=== PATIENT | female | born 2000 | race Caucasian/White ===

== ENCOUNTER → 2022-12-18 14:20 | Outpatient (CLI) | payer OTHER, SELFPAY ==
--- NOTE | ~2022-12-18 | US_ITS ---
EXAMINATION: US OB transvaginal DATE: 12/18/2022 14:46 INDICATION: Gestational dating. Irregular periods. TECHNIQUE: Real-time transvaginal obstetric ultrasound. FINDINGS: No prior studies for comparison. The uterus measures 7.3 x 3.9 x 4.3 cm. There is an intrauterine gestational sac, with pole waqas ntified. Mean sac diameter is 1.23 cm corresponding to 5 week 2 day gestation. [place]-rump length usama ures 0.19 cm. No heart motions are detected, most likely due to early gestational age. Ovaries are not visualized. IMPRESSION: 1. Intrauterine gestational sac containing a yolk sac and pole corresponding to 5 week 2 day ge station. No heart motions are detected, likely due to early gestational age. Recommend follow-u p with serial quantitative beta-hCG levels and ultrasound as clinically indicated. Reviewed, dictated and finalized at location A. IMPRESSION: 1. Intrauterine gestational sac containing a yolk sac and pole correspond ing to 5 week 2 day gestation. No heart motions are detected, likely due to early gestational age. Recommend follow-up with serial quantitative beta-hCG levels and ultrasound as clinically indicated.
== END ==
PROVIDERS: PCP Obstetrics & Gynecology Gynecology; Visit Provider Obstetrics & Gynecology Gynecology
DX: Z36.87 Encounter for antenatal screening for uncertain dates (principal); Z3A.01 Less than 8 weeks gestation of pregnancy
CPT/HCPCS: 76817

== ENCOUNTER → 2022-12-29 11:13 | Outpatient (CLI) | payer OTHER, SELFPAY ==
--- NOTE | ~2022-12-29 | US_ITS ---
Pelvic ultrasound. Clinical History: First trimester , inconclusive viability Technique: Realtime transabdominal and transvaginal scanning of the pelvis was performed. Color flow Doppler and Doppler spectral analysis were performed. Findings: The uterus is anteverted, and contains an intrauterine gestation. [place]-rump length of 1 cm corresponds to an estimated gestational age of 7 weeks 1 day. heart rate is 151 bpm. The right ovary measures 2.2 x 1.3 x 1.9 cm. No significant right ovarian or adnexal mass is seen. The left ovary measures 1.6 x 1.2 x 2.1 cm. No significant left ovarian or adnexal mass is seen. There is no evidence of free fluid in the cul de sac. Impression: Live intrauterine gestation with estimated gestational age is 7 weeks 1 day. heart rate is 151 bpm. Sonographic BRIAN is 08/17/2023. Reviewed, dictated and finalized at [facility]. Impression: Live intrauterine gestation with estimated gestational age is 7 weeks 1 day. Fe alfonso heart rate is 151 bpm. Sonographic BRIAN is 08/17/2023.
== END ==
PROVIDERS: PCP Obstetrics & Gynecology Gynecology; Visit Provider Obstetrics & Gynecology Gynecology
DX: O36.80X0 Pregnancy with inconclusive fetal viability, not applicable or unspecified (principal); Z3A.01 Less than 8 weeks gestation of pregnancy
CPT/HCPCS: 76801

== ENCOUNTER → 2023-03-16 11:08 | Outpatient (CLI) | payer OTHER, SELFPAY ==
--- NOTE | ~2023-03-16 | US_ITS ---
EXAMINATION: US OB /maternal detail DATE: 03/16/2023 11:45 INDICATION: Second trimester anatomic survey TECHNIQUE: Real-time ultrasound of the pelvis was performed. COMPARISON: 12/29/2022 FINDINGS: There is a single living fetus in breech presentation. The placenta is anterior and 5.4 cm from the i nternal cervical os. The cervical length is 3.7 cm. heart rate is 152 beats per minute (bpm). cardiac activity and movement are noted. The amniotic fluid index is subjectively normal. The following anatomy was identified as normal: 4 chamber heart 3 vessel cord cord insertion kidneys urinary bladder stomach spine diaphragm ventricles cisterna magna cerebellum The following biometric data were obtained: Biparietal diameter (BPD): 4.1 cm; head circumference (HC): 15.1 cm; abdominal circumference (AC): 14 .1 cm; femur length (FL): 2.7 cm. The head circumference to abdominal circumference ratio is greater than two standard deviations below the mean. These measurements are otherwise concordant. Estimated weight is 259 g +/- 38 g, which correlates with the 90th percentile when 08/17/2023 i s used as estimated date of delivery. As single measurements, these parameters are each equal to the following estimated gestational ages w ith ranges of +/- 2 standard deviations: BPD: 18 weeks 3 days ( 16 weeks 5 days - 20 weeks 1 days). HC: 18 weeks 1 days ( 16 weeks 5 days - 19 weeks 4 days). AC: 19 weeks 3 days ( 17 weeks 3 days - 21 weeks 4 days). FL: 18 weeks 2 days ( 16 weeks 3 days - 20 weeks 1 days). estimated gestational age based solely on measurements from this exam is 18 weeks 4 days +/- 1 weeks 2 days. IMPRESSION: 1. Single living fetus in breech presentation. 2. Estimated weight is 259 g +/- 38 g, which correlates with the 90th percentile when 3 is used as estimated date of delivery. 3. Head circumference to abdominal circumference ratio is greater than two standard deviations below the mean. Reviewed, dictated and finalized at location A. IMPRESSION: 1. Single living fetus in breech presentation. 2. Estimated weight is 259 g +/- 38 g, which correlates with the 90th per centile when 08/17/2023 is used as estimated date of delivery. 3. Head circumference to abdominal circumference ratio is greater than two leo dard deviations below the mean.
== END ==
PROVIDERS: PCP Advanced Practice Midwife; Visit Provider Advanced Practice Midwife
DX: Z36.9 Encounter for antenatal screening, unspecified (principal); Z3A.18 18 weeks gestation of pregnancy
CPT/HCPCS: 76805

== ENCOUNTER 2023-06-03 20:17 | Observation (INO) | payer OTHER, SELFPAY ==
[2023-06-03] VITALS (9 sets, daily range): BP systolic 93–113; BP diastolic 56–67; PULSE 85–104; O2SAT 96–97; BMI 34.4
[2023-06-03 21:45] LABS: Basophils Percent Auto 0.2 % (0.2-1.2); Eosinophils Absolute Auto 0.2 K/mm3 (0-0.3); Eosinophils Percent Auto 2.7 % (0-4.4); Hematocrit 31.8 % (37.0-47.0); Hemoglobin 10.5 g/dL (12.0-15.0); Immature Granulocyte Absolute 0.03 K/mm3 (0.00-0.031); Immature Granulocyte Percent A 0.5 % (0-0.5); Lymphocytes Absolute Auto 1.21 K/mm3 (0.9-3.2); Lymphocytes Percent Auto 18.2 % (18.3-44.2); Mean Corpuscular Hemoglobin 29.5 pg (26-34); Mean Corpuscular Volume 89.3 fl (80-100); Mean Platelet Volume 9.7 fl (7.4-10.4); Monocytes Absolute Auto 0.4 K/mm3 (0.1-0.6); Monocytes Percent Auto 6.3 % (2.6-8.5); Neutrophils Absolute Auto 4.8 K/mm3 (1.3-6.7); Neutrophils Percent Auto 72.1 % (45.5-73.1); Platelet Count Result 275 k/mm3 (150-375); Red Blood Count 3.56 M/mm3 (4.2-5.4); Red Cell Distribution Width 13.2 % (11.5-14.5); White Blood Count 6.7 K/mm3 (4.5-10.0)
[2023-06-03 21:52] LABS: Alanine Aminotransferase 24 U/L (6-35); Albumin Level 3.7 g/dL (3.5-5.1); Alkaline Phosphatase 88 U/L (38-126); Anion Gap 6 mmol/L (8-16); Aspartate Amino Transferase 31 U/L (14-36); Bilirubin,Total 0.2 mg/dL (0.2-1.3); Blood Urea Nitrogen 11 mg/dL (7-17); Calcium 8.8 mg/dL (8.4-10.2); Carbon Dioxide 22 mmol/L (22-30); Chloride 105 mmol/L (98-107); Estimated Glomerular Filt Rate > 60; Glucose 94 mg/dL (65-110); Potassium 3.6 mmol/L (3.4-5.0); Sodium 133 mmol/L (137-145)
--- NOTE | 2023-06-03 22:03 | OBADM ---
This patient, Delphine Xiao, admitted to the OB room OB Post 117 for observation. Patient/family oriented to hospital policies and general routines including ID bracelet, bed and alarms, visiting hours, pain management, procedures, bathroom and other care routines, personal items, smoking policy, room service/diet, and visiting hours. Patient/Family are encouraged to report perceived risks to care and to ask questions if they do not understand what they are told or what they should do.
--- NOTE | 2023-06-10 12:26 | P.PNOB_ITS ---
OB - Triage/Final Diagnosis Visit Information Date of evaluation: 06/03/23 Reason for evaluation: other (dizziness) Comments/Additional reasons for admission: I have assessed the risk for this patient, Delphine Xiao, and determined that she would benefit from observation care. Evaluation Laboratory results: Laboratory Tests 06/03/23 21:32 WBC 6.7 RBC 3.56 L Hgb 10.5 L Hct 31.8 L MCV 89.3 MCH 29.5 MCHC 33.0 RDW 13.2 Plt Count 275 MPV 9.7 Immature Gran % (Auto) 0.5 Neut % (Auto) 72.1 Lymph % (Auto) 18.2 L [place] % (Auto) 6.3 Eos % (Auto) 2.7 Baso % (Auto) 0.2 Lymph # (Auto) 1.21 [place] # (Auto) 0.4 Eos # (Auto) 0.2 Baso # (Auto) 0.0 Abs Immat Gran (auto) 0.03 Absolute Neuts (auto) 4.8 Absolute Nucleated RBC 0.0 Nucleated RBC % 0.0 Sodium 133 L Potassium 3.6 Chloride 105 Carbon Dioxide 22 Anion Gap 6 L BUN 11 Creatinine 0.40 L Estim Creat Clear Calc Not Reportable Estimated GFR > 60 Glucose 94 Calcium 8.8 Total Bilirubin 0.2 AST 31 ALT 24 Alkaline Phosphatase 88 Total Protein 8.0 Albumin 3.7 Comments: Pt evaluated on unit by RN. Plan of care discussed with CNM. FHTs reassuring. VSS. No evidence of active labor or ROM. Orthostatic BPs neg. CBC and CMP are WNL. Final Diagnosis (1) Dizziness: Code(s): R42 - Dizziness and giddiness Status: Acute
== END 2023-06-03 22:31 | disposition home or self-care (01) ==
PROVIDERS: Admitting Provider Obstetrics & Gynecology Gynecology; PCP Advanced Practice Midwife; Visit Provider Obstetrics & Gynecology Gynecology
DX: O99.891 Other specified diseases and conditions complicating pregnancy (principal); R42 Dizziness and giddiness; Z3A.00 Weeks of gestation of pregnancy not specified
CPT/HCPCS: 36415; 80053; 85025; G0378; G0379

== ENCOUNTER → 2023-06-23 13:01 | Outpatient (CLI) | payer OTHER, SELFPAY ==
--- NOTE | ~2023-06-23 | US_ITS ---
EXAMINATION: US OB follow up DATE: 06/23/2023 13:26 INDICATION: Size greater than dates during third trimester TECHNIQUE: Real-time ultrasound of the pelvis was performed. The interpreting radiologist was not pre sent for the study. COMPARISON: None. FINDINGS: There is a single living fetus in breech presentation. The placenta is anterior. card iac activity and movement are noted. heart rate is 145 beats per minute (bpm). The amniot ic fluid index is 13.3 cm which is normal (normal range: 8.6 cm to 24.2 cm). The following biometric data were obtained: Biparietal diameter (BPD): 8.0 cm; head circumference (HC): 29.8 cm; abdominal circumference (AC): 27 .6 cm; femur length (FL): 5.9 cm. These measurements are concordant. Estimated weight is 1781 g +/- 267 g, which correlates with the 21st percentile when 08/17/2023 is used as estimated date of delivery. As single measurements, these parameters are each equal to the following estimated gestational ages w ith ranges of +/- 2 standard deviations: BPD: 32 weeks 2 days ( 29 weeks 1 days - 35 weeks 3 days). HC: 33 weeks 0 days ( 30 weeks 0 days - 36 weeks 0 days). AC: 31 weeks 5 days ( 28 weeks 5 days - 34 weeks 4 days). FL: 30 weeks 4 days ( 27 weeks 5 days - 33 weeks 4 days). estimated gestational age based solely on measurements from this exam is 31 weeks 6 days +/- 2 weeks 2 days. IMPRESSION: 1. Single living fetus in breech presentation. 2. Normal amniotic fluid index. 3. Estimated weight is 1781 g +/- 267 g, which correlates with the 21st percentile when 023 is used as estimated date of delivery. Reviewed, dictated and finalized at location L. IMPRESSION: 1. Single living fetus in breech presentation. 2. Normal amniotic fluid index. 3. Estimated weight is 1781 g +/- 267 g, which correlates with the p ercentile when 08/17/2023 is used as estimated date of delivery.
== END ==
PROVIDERS: PCP Advanced Practice Midwife; Visit Provider Advanced Practice Midwife
DX: O36.63X0 Maternal care for excessive fetal growth, third trimester, not applicable or unspecified (principal); Z3A.31 31 weeks gestation of pregnancy
CPT/HCPCS: 76816

== ENCOUNTER → 2023-07-24 12:52 | Outpatient (CLI) | payer OTHER, SELFPAY ==
--- NOTE | ~2023-07-24 | US_ITS ---
EXAMINATION: US OB follow up DATE: 07/24/2023 13:17 INDICATION: Breech presentation and third trimester TECHNIQUE: Real-time ultrasound of the pelvis was performed. The interpreting radiologist was not pre sent for the study. COMPARISON: 06/23/2023 FINDINGS: There is a single living fetus in breech presentation. The placenta is anterior. The measur ed cervical length is 2.6 cm. cardiac activity and movement are noted. heart rate i s 179 beats per minute (bpm). The amniotic fluid index is 4.9 cm which is low (normal range: 7.7 cm t o 24.9 cm). The following biometric data were obtained: Biparietal diameter (BPD): 8.5 cm; head circumference (HC): 32.7 cm; abdominal circumference (AC): 32 .5 cm; femur length (FL): 7.1 cm. These measurements are concordant. Estimated weight is 2874 g +/- 431 g, which correlates with the 43rd percentile when 08/17/2023 is used as estimated date of delivery. As single measurements, these parameters are each equal to the following estimated gestational ages w ith ranges of +/- 2 standard deviations: BPD: 34 weeks 3 days ( 31 weeks 2 days - 37 weeks 3 days). HC: 37 weeks 1 days ( 34 weeks 3 days - 39 weeks 6 days). AC: 36 weeks 3 days ( 33 weeks 3 days - 39 weeks 3 days). FL: 36 weeks 1 days ( 33 weeks 1 days - 39 weeks 1 days). estimated gestational age based solely on measurements from this exam is 36 weeks 0 days +/- 2 weeks 4 days. IMPRESSION: 1. Single living fetus in breech presentation. 2. Oligohydramnios. 3. Estimated weight is 2874 g +/- 431 g, which correlates with the 43rd percentile when 023 is used as estimated date of delivery. Reviewed, dictated and finalized at location F. IMPRESSION: 1. Single living fetus in breech presentation. 2. Oligohydramnios. 3. Estimated weight is 2874 g +/- 431 g, which correlates with the 43rd p ercentile when 08/17/2023 is used as estimated date of delivery.
== END ==
PROVIDERS: PCP Advanced Practice Midwife; Visit Provider Advanced Practice Midwife
DX: O32.1XX0 Maternal care for breech presentation, not applicable or unspecified (principal); Z3A.36 36 weeks gestation of pregnancy
CPT/HCPCS: 76816

== ENCOUNTER 2023-07-24 16:05 | Observation (INO) | payer OTHER, SELFPAY ==
--- NOTE | ~2023-07-24 | US_ITS ---
EXAMINATION: US OB limited DATE: 07/25/2023 08:06 INDICATION: Oligohydramnios. TECHNIQUE: Real-time transabdominal obstetric ultrasound. FINDINGS: Comparison to multiple prior studies sequentially, with oldest reviewed study dated 023. There is a single living intrauterine in breech presentation. heart rate is 136 BPM. Amniotic fluid index is lower normal measuring 7.7 cm (normal range is 7.7-24.9 cm). IMPRESSION: 1. Single living intrauterine in breech presentation. 2: Amniotic fluid index is lower limits of normal measuring 7.7 cm. Reviewed, dictated and finalized at location A.
[2023-07-24 17:53] VITALS: BMI 36.5
[2023-07-24 18:19] VITALS: BP 100/58
[2023-07-24] MEDS: LACTATED RINGERS 1,000 ML 125 ML IV CONT (19:50)
[2023-07-25] MEDS: LACTATED RINGERS 1,000 ML 125 ML IV CONT (03:51)
[2023-07-25 05:28] VITALS: BP 103/64; PULSE 77
--- NOTE | 2023-08-14 10:15 | PM.OBTRLD ---
OB - Triage/Final Diagnosis Visit Information Comments/Additional reasons for admission: I have assessed the risk for this patient, Bendennis Yen Ninoska, and determined that she would benefit from observation care. Final Diagnosis (1) Oligohydramnios antepartum: Code(s): O41.00X0 - Oligohydramnios, unspecified trimester, not applicable or unspecified Status: Acute
== END 2023-07-25 09:31 | disposition home or self-care (01) ==
PROVIDERS: Admitting Provider Obstetrics & Gynecology; Visit Provider Obstetrics & Gynecology
DX: O41.00X3 Oligohydramnios, unspecified trimester, fetus 3 (principal); Z3A.36 36 weeks gestation of pregnancy
CPT/HCPCS: 59025; 76815; 96360; 96361; G0378; G0379; J7120

== ENCOUNTER 2023-07-28 06:37 | Outpatient (CLI) | payer OTHER, SELFPAY ==
[2023-07-28] VITALS (28 sets, daily range): BP systolic 95–121; BP diastolic 51–71; PULSE 72–115; O2SAT 93–100
[2023-07-28] MEDS: TERBUTALINE SULFATE 1 MG/ML VIAL 0.25 MG SUB-Q (07:37)
--- NOTE | 2023-07-28 08:02 | P.OP_ITS ---
Procedure Note - Detailed Date of Procedure 07/28/23 Pre-op Diagnosis areli breech at 37 wks Post-op Diagnosis Same Procedure Performed failed external version Surgeon Becky Caldwell MD Anesthesia None Findings head RUQ with breech in pelvis Description of Procedure Breech lifted from pelvis and held by fish hatchery assistant. Multiple attempts to move head were not successful. Did move to LUQ but could not move past rib. breech moved to RLQ. FHT's checked throughout procedure. Estimated Blood Loss 0 Drains No Packing No Pathology None sent Complications No immediate complications Condition Stable Disposition Floor
--- NOTE | 2023-07-28 08:10 | PC.NURSE ---
0754: External Version performed by Dr. Caldwell was unsuccessful.
== END 2023-07-28 09:06 | disposition home or self-care (01) ==
LOC: ANHOBOP 06:44 → ANHOBPP 06:46
PROVIDERS: Visit Provider Obstetrics & Gynecology Gynecology
DX: O32.1XX0 Maternal care for breech presentation, not applicable or unspecified (principal); Z3A.00 Weeks of gestation of pregnancy not specified
CPT/HCPCS: 59025; 96372; 99199; J3105

== ENCOUNTER → 2023-07-28 10:59 | Outpatient (CLI) | payer OTHER, SELFPAY ==
--- NOTE | ~2023-07-28 | US_ITS ---
US OB limited 07/28/2023 11:21 Indication: Oligohydramnios Procedure: Limited obstetrical ultrasound using transabdominal technique Comparison: No prior studies for comparison. Findings: There is a single living intrauterine in breech presentation. heart rate is 138 BPM. Placenta is anterior without previa. Cervical length is 2 cm. Amniotic fluid index is yancy l measuring 8.3 cm. Impression: 1: Single living intrauterine in breech presentation. 2: FLORIDALMA is lower normal measuring 8.3 cm. Reviewed, dictated and finalized at location L. Impression: 1: Single living intrauterine in breech presentation. 2: FLORIDALMA is lower normal measuring 8.3 cm.
== END ==
PROVIDERS: PCP Advanced Practice Midwife; Visit Provider Advanced Practice Midwife
DX: O32.0XX0 Maternal care for unstable lie, not applicable or unspecified (principal); Z3A.00 Weeks of gestation of pregnancy not specified
CPT/HCPCS: 76815

== ENCOUNTER → 2023-08-03 12:12 | Outpatient (CLI) | payer OTHER, SELFPAY ==
--- NOTE | ~2023-08-03 | US_ITS ---
EXAMINATION: US OB follow up DATE: 08/03/2023 12:39 INDICATION: Expected size less than expected for estimated gestational age. Breech presentation . TECHNIQUE: Real-time ultrasound of the pelvis was performed. The interpreting radiologist was not pre sent for the study. COMPARISON: 07/28/2023 FINDINGS: There is a single living fetus in breech presentation. The placenta is anterior and not low-lying. F etal heart rate is 166 beats per minute (bpm). The amniotic fluid index is 12.0 cm, which is normal. The following biometric data were obtained: BPD: 8.8 cm -> 35 weeks 3 days Head circumference: 32.2 cm -> 36 weeks 2 days Abdominal circumference: 32.3 cm -> 36 weeks 1 days Femur length: 6.5 cm -> 33 weeks 4 days These measurements are concordant. Head circumference to abdominal circumference ratio: 1.00 (normal range 0.93-1.10). Estimated weight: 2681 g (+/-) 402 g or 5 lbs. 15 oz. (+/-) 14 oz. IMPRESSION: 1. Single living fetus in breech presentation with heart rate of 166 bpm. 2. Normal amniotic fluid index of 12.0 cm. 3. Estimated weight is 9th percentile by Hadlock criteria when 08/17/2023 is used as the estima fernanda date of delivery (BRIAN). Please correlate with clinical information or earlier ultrasounds for mos t accurate BRIAN. Reviewed, dictated and finalized at location A. IMPRESSION: 1. Single living fetus in breech presentation with heart rate of 166 bpm. 2. Normal amniotic fluid index of 12.0 cm. 3. Estimated weight is 9th percentile by Hadlock criteria when 08/17/2023 is used as the estimated date of delivery (BRIAN). Please correlate with clinica l information or earlier ultrasounds for most accurate BRIAN.
== END ==
PROVIDERS: PCP Advanced Practice Midwife; Visit Provider Advanced Practice Midwife
DX: O36.5930 Maternal care for other known or suspected poor fetal growth, third trimester, not applicable or unspecified (principal); Z3A.00 Weeks of gestation of pregnancy not specified
CPT/HCPCS: 76816

== ENCOUNTER 2023-08-09 09:59 | Outpatient (CLI) | payer OTHER, SELFPAY ==
[2023-08-09 10:27] LABS: Basophils Percent Auto 0.2 % (0.2-1.2); Eosinophils Absolute Auto 0.2 K/mm3 (0-0.3); Eosinophils Percent Auto 2.5 % (0-4.4); Hematocrit 37.7 % (37.0-47.0); Hemoglobin 12.2 g/dL (12.0-15.0); Immature Granulocyte Absolute 0.06 K/mm3 (0.00-0.031); Lymphocytes Absolute Auto 0.87 K/mm3 (0.9-3.2); Lymphocytes Percent Auto 14.2 % (18.3-44.2); Mean Corpuscular HGB Conc 32.4 g/dl (32-36); Mean Corpuscular Hemoglobin 28.8 pg (26-34); Mean Corpuscular Volume 89.1 fl (80-100); Mean Platelet Volume 10.1 fl (7.4-10.4); Monocytes Absolute Auto 0.3 K/mm3 (0.1-0.6); Monocytes Percent Auto 4.4 % (2.6-8.5); Neutrophils Absolute Auto 4.8 K/mm3 (1.3-6.7); Neutrophils Percent Auto 77.7 % (45.5-73.1); Platelet Count Result 257 k/mm3 (150-375); Red Blood Count 4.23 M/mm3 (4.2-5.4); Red Cell Distribution Width 14.2 % (11.5-14.5); White Blood Count 6.1 K/mm3 (4.5-10.0)
[2023-08-10 08:14] LABS: Rapid Plasma Reagin Non-Reactive (NonReactive)
== END 2023-08-09 10:00 | disposition home or self-care (01) ==
LOC: ANHOBOP 10:06
PROVIDERS: PCP Advanced Practice Midwife; Visit Provider Obstetrics & Gynecology Gynecology
DX: Z01.818 Encounter for other preprocedural examination (principal)
CPT/HCPCS: 36415; 85025; 86592; 86850; 86900; 86901

== ENCOUNTER 2023-08-10 05:34 | Inpatient (IN) | payer OTHER, SELFPAY ==
[2023-08-10] VITALS (56 sets, daily range): BP systolic 93–131; BP diastolic 51–119; PULSE 55–91; RESP 15–18; TEMP 36.2–37.1; O2SAT 96–100; BMI 37.3
--- NOTE | 2023-08-10 05:34 | LDADM ---
This patient, Delphine Xiao, was admitted to Labor/Delivery/Recovery 120 on 08/10/23 at 05:34. Plans for labor, pain management and were discussed with patient. Patient/family oriented to hospital policies and general routines including ID bracelet, bed and alarms, visiting hours, pain management, procedures, bathroom and other care routines, personal items, smoking policy, room service/diet and guest tray routines, security routines, and visiting hours. Patient/Family are encouraged to report perceived risks to care and to ask questions if they do not understand what they are told or what they should do. See OBIX for further documentation.
--- NOTE | 2023-08-10 06:04 | WPDANESEPP ---
Anes - Eval Pre Procedure Procedure: Operation Date: 08/10/23 07:30 Proposed Procedures p Section - Becky Caldwell MD Date/Time: 08/10/23 06:04 Pre Op Diagnosis: C/S Patient Data Age: 23 Gender: F Height: 1.5 m Weight: 84 kg Allergies Allergy/AdvReac Type Severity Reaction Status Date / Time No Known Allergies Allergy Unknown Verified 07/24/23 17:48 Home Medications Medication Instructions Recorded Confirmed Type cholecalciferol (vitamin D3) 1,250 1,250 mcg PO WEEKLY 07/16/23 07/24/23 History mcg (50,000 unit) tablet ferrous sulfate 325 mg (65 mg 325 mg PO DAILY 07/16/23 07/24/23 History iron) tablet prenat.vits,brittany,[id number]-rohdj tablet 07/16/23 History Patient hx anesthesia problems: none Family hx anesthesia problems: none Results Review: All pre-operative results and documents have been reviewed as part of the pre-operative evaluation. FOR[facility]LY [facility], LAT[facility] Past Medical History Medical History (Updated 08/10/23 @ 06:08 by Madyson Cabrera CRNA) Non-Hodgkin lymphoma h/o surg in 2017, in remission Family History Family History Mother Diabetes mellitus Social History Social History Substance use: never Spiritual care concerns: No Exam Day of Procedure 08/10/23 06:04 Patient weight: obese Heart: regular rate and rhythm Lungs: clear to auscultation Airway: Mallampati scale Neurological: alert and oriented
[2023-08-10] MEDS: LACTATED RINGERS 1,000 ML 125 ML IV CONT ×2 (06:15→06:53)
--- NOTE | 2023-08-10 07:16 | WPDHPUPDATE1 ---
History and Physical Update Update Date/Time: 08/10/23 07:16 History and Physical has been reviewed, including an updated exam of the patient. There are NO changes in the patient's condition. Risks, benefits, and alternatives have been discussed and questions answered. Patient agrees to proceed with procedure.
--- NOTE | 2023-08-10 07:16 | PM.IMHP ---
H&P: HPI History of Present Illness Date/Time: 08/10/23 07:16 Chief Complaint: Breech presentation Narrative: the patient is a 23-year-old 1 admitted at 39 weeks for primary for breech presentation. Patient had an attempted external version that was not successful. Ultrasound was just performed and infant is still breech. was complicated by COVID in April of 2023 and mild oligohydramnios in July. labs B positive, rubella nonimmune, RPR negative, hepatitis-B surface antigen negative, HIV negative, group B strep negative. Review of Systems Review of Systems: not repeated day of surgery; patient states no changes in status FORMERLY [facility] Past Medical History Medical History (Updated 08/10/23 @ 07:19 by Becky Caldwell MD) Non-Hodgkin lymphoma h/o surg in 2017, in remission Sjogren syndrome, unspecified Surgical History Surgical History (Updated 08/10/23 @ 07:18 by Becky Caldwell MD) History of superficial parotidectomy left Family History Family History Mother Diabetes mellitus Social History Social History Smoking status: Never smoker Second hand tobacco smoke exposure: No Substance use: never Lack of Transportation: No Lack of Food: Never True Current Housing: I Have Housing Concerned About Future Housing: No Difficulty Paying Gas/Electric Bills: No Difficulty Paying for Meds: No Currently Unemployed: YES Education: High School Diploma/GED Difficulty w/ Childcare or Family Care: No Spiritual care concerns: No Meds Home Medications and Allergies Home Medications Medication Instructions Recorded Confirmed Type cholecalciferol (vitamin D3) 1,250 1,250 mcg PO WEEKLY 07/16/23 08/10/23 History mcg (50,000 unit) tablet ferrous sulfate 325 mg (65 mg 325 mg PO DAILY 07/16/23 08/10/23 History iron) tablet prenat.vits,brittany,[id number] tablet 07/16/23 History Allergies Allergy/AdvReac Type Severity Reaction Status Date / Time No Known Allergies Allergy Unknown Verified 08/10/23 06:16 Vital Signs Vital Signs - 24 hr 08/10/23 06:26 08/10/23 06:30 08/10/23 06:45 Pulse Rate 82 66 71 Blood Pressure 102/56 L 104/60 97/62 L Oxygen Delivery 08/10/23 07:00 08/10/23 07:15 08/10/23 06:42 Pulse Rate 83 78 Blood Pressure 112/68 110/70 Oxygen Delivery Room Air Exam Const: General: healthy appearing and alert Orientation/consciousness: patient oriented x3 Resp: Effort & Inspection: normal respiratory effort GI: GI Palp: Yes Soft to palpation, No Tenderness to palpation present (GI) and Yes Other GI palpation findings present ( fundal height 36) : External Female Exam: normal external appearance Bimanual Exam- Adnexa, other: normal adnexae and No adnexal tenderness Neuro: General: patient oriented x3 Assessment and Plan Assessment and plan (1) 39 weeks gestation of : Code(s): Z3A.39 - 39 weeks gestation of Status: Acute (2) Breech presentation: Code(s): O32.1XX0 - Maternal care for breech presentation, not applicable or unspecified Status: Acute Assessment and Plan: plan to proceed with primary section
[2023-08-10] MEDS: ceFAZolin 2 GM/D5W 50 ML 2 GM/50 ML BAG IVPB (07:27)
--- NOTE | 2023-08-10 08:18 | W.PM.OBCSD ---
OB - Delivery Note Procedure Delivery date: 08/10/23 Pre-op diagnosis: Breech Presentation Post-op Diagnosis: Same Induction method: None Procedure Performed: Primary Primary branch: low cervical, transverse Surgeon: Becky Caldwell MD Anesthesia type: Spinal Description of Procedure/Findings: The patient was taken to the operating room and placed under spinal anesthesia in the dorsal supine position with a leftward tilt. Anesthesia was deemed adequate and the patient was prepped and draped in the usual sterile fashion. A Pfannenstiel skin incision was made with a scalpel and carried down to the underlying layer of fascia which was nicked in the midline. The incision was extended laterally using Mccrary scissors. Ochsner was used to tent the fascia which was then dissected off using sharp and blunt dissection. The peritoneum was tented and entered with Metzenbaum and extended with blunt traction. The bladder blade is placed and the vesicouterine peritoneum tented and entered with Metzenbaum scissors. The bladder flap was created manually. The bladder blade is replaced. The lower uterine segment was incised in a transverse fashion with the scalpel. The incision was extended laterally with blunt traction. The membranes were ruptured and minimal fluid noted. The breech was grasped and delivered through the incision to the scapula. The infant was rotated in the right arm delivered spontaneously. The was rotated and the left arm delivered spontaneously. The was extended on the abdomen and the head delivered spontaneously. The cord was clamped and cut after delayed cord clamping. The was handed to the waiting nursery nurse. The placenta was attempted to be removed using manual traction with immediate cord avulsion. The placenta was then removed medially. The uterus is all cleared of clots and debris and exteriorized. Significant atony was noted despite massage and the patient was given increased Pitocin and Methergine. The atony continued and Hemabate is given. The uterine incision was closed using 0 Monocryl in a running locked fashion with the same suture used to imbricate. [place] resolved by the end of the uterine closure. One additional [id number] was required in the midline for hemostasis. The cul-de-sac is irrigated and the uterus returned to the abdomen. The gutters are irrigated. The incision was again inspected noted to be hemostatic. The fascia was closed using 0 Vicryl in a running fashion the subcutaneous tissues were irrigated made hemostatic using Bovie cautery. Skin is closed using 4-0 Vicryl in a subcuticular fashion. Sponge, needle, and instrument counts are correct per the OR staff. Patient is a taken to recovery in stable condition. Specimen: Yes ( placenta) Estimated Blood Loss: 510 Drains: Yes ( Emmanuel catheter) Packing: No Pathology: Yes ( placenta) Complications: No immediate complications Condition: Stable Disposition: Floor [place] Baby Date of : 08/10/23 Weeks of gestation at delivery: 39 gender: Female Weight (pounds): 6 Weight (ounces): 7 presentation: areli breech Placenta delivery description: Manual Removal Cord Vessel Description: 3 Vessels and Delayed Cord Clamping score one minute: 9 score five minutes: 9
--- NOTE | 2023-08-10 08:25 | PM.OBDSVD ---
DS: Admitting Diagnosis Discharge Date 08/13/23 Admitting Diagnosis intrauterine at 39 weeks in the breech presentation DS: Discharge Diagnosis Discharge Diagnosis (1) Delivery by section using transverse incision of lower segment of uterus: Code(s): O82 - Encounter for delivery without indication Status: Acute OB - DS: Summary OB Procedures : Ultrasound and External version ( failed) OB Procedures Intrapartum: low cervical, transverse OB Procedures: : None Peripartum Data Delivery Method: Section Procedures: Procedures Operation Date: 08/10/23 07:30 <No data on this case meets the specified criteria> complications: none Status at Discharge Functional status at discharge: independent ambulation Overall status at discharge: patient is progressing back to baseline Time Spent with Patient Time attestation: Total time spent providing and/or coordinating discharge services: Discharge Plan Discharge Attending physician on discharge: Becky Caldwell Discharging Clinician: Becky Caldwell Anticipated Discharge Date/Time: 08/13/23 08:26 Patient Disposition: Home, Self-Care Activity: may shower, may drive after 2 weeks and pelvic rest Diet: regular Wound Care Instructions: incision open to air Patient Instructions: Antibiotic Form Stand Alone Forms: General Discharge Information Follow-up/Referrals: Sharon Duran CNM [Primary Care Provider] - 1 Week ( and 6 week) Discharge Medications: New hydrocodone-acetaminophen 5-325 mg tablet 1 tablet PO Q4H PRN (Reason: pain) Qty: 20 0RF Phexxi 1.8-1-0.4 % gel 1 appful vaginal PER PKG DIR Qty: 60 12RF Rx Instructions: insert 1 applicatorful vaginally within 1 hour before each act of vaginal intercourse Continued ferrous sulfate 325 mg (65 mg iron) Tablet 325 mg PO DAILY prenat.vits,brittany,rvz-reom-dtymu Tablet cholecalciferol (vitamin D3) 1,250 mcg (50,000 unit) Tablet 1,250 mcg PO WEEKLY Date of admission: 08/10/23 05:34 Primary Care Provider: Sharon Duran Admitting Provider: Becky Caldwell Attending physician on admission: Becky Caldwell Condition: Stable
[2023-08-10] MEDS: OXYTOCIN 30 UNITS/NS 500 ML 30 UNITS/500 ML BAG 125 UNITS IV CONT (10:18)
--- NOTE | 2023-08-10 10:58 | PC.NURSE ---
Patient transferred to post room #290 via ( stretcher ). Support person present. Oriented to unit, room, information board, rooming in, admission packet and security measures. Patient verbalizes understanding.
[2023-08-10] MEDS: HYDROcodone/acetaminophen (*CRX) 5-325 MG TABLET 1 TAB PO (11:29)
[2023-08-10] MEDS: MULTIVIT/MIN/PREN/FOL AC/IRON TABLET 1 TAB PO (11:29)
[2023-08-10] MEDS: DEXTROSE 5%/0.45% SOD CHL 1,000 ML 125 ML IV CONT (11:29)
[2023-08-10] MEDS: DOCUSATE SODIUM 100 MG CAPSULE PO (11:29)
--- NOTE | 2023-08-10 15:08 | PC.NURSE ---
[id number] Introductions were made, then consulted with patient to assess needs related to . Mother led the conversation with her?plans to feed?her infant, the?experience so far and states latched well at 1300 with no pain. Resources provided for inpatient name written on the white board. Encouraged understanding of the benefits of skin to skin (demonstrating unwrapping infant and placing upright on her chest), stimulating with massage touch, changing positions to encourage wakefulness, how to watch for early feeding cues, responsive feeding, feeding on demand (aiming for 8-12 times in 24 hours, about every 2-3 hours), milk production, building/maintaining a milk supply, duration of feeding, signs of adequate intake/output and how to record on the feeding sheet. Parents voiced understanding of information. Reported to the primary RN.
[2023-08-10] MEDS: LORATADINE 10 MG TABLET PO (15:45)
[2023-08-11] MEDS: HYDROcodone/acetaminophen (*CRX) 10-325 MG TABLET 1 TAB PO (00:18)
[2023-08-11] MEDS: IBUPROFEN 600 MG TABLET PO ×3 (00:18→18:55)
[2023-08-11 04:50] VITALS: BP 100/62; PULSE 65; RESP 18; TEMP 37; O2SAT 100
[2023-08-11 05:28] LABS: Basophils Percent Auto 0.1 % (0.2-1.2); Eosinophils Percent Auto 0.5 % (0-4.4); Hematocrit 29.6 % (37.0-47.0); Hemoglobin 9.4 g/dL (12.0-15.0); Immature Granulocyte Absolute 0.06 K/mm3 (0.00-0.031); Immature Granulocyte Percent A 0.7 % (0-0.5); Lymphocytes Absolute Auto 1.42 K/mm3 (0.9-3.2); Lymphocytes Percent Auto 16.2 % (18.3-44.2); Mean Corpuscular HGB Conc 31.8 g/dl (32-36); Mean Corpuscular Hemoglobin 28.7 pg (26-34); Mean Corpuscular Volume 90.5 fl (80-100); Mean Platelet Volume 10.2 fl (7.4-10.4); Monocytes Absolute Auto 0.6 K/mm3 (0.1-0.6); Monocytes Percent Auto 6.6 % (2.6-8.5); Neutrophils Absolute Auto 6.6 K/mm3 (1.3-6.7); Neutrophils Percent Auto 75.9 % (45.5-73.1); Platelet Count Result 223 k/mm3 (150-375); Red Blood Count 3.27 M/mm3 (4.2-5.4); Red Cell Distribution Width 14.1 % (11.5-14.5); White Blood Count 8.7 K/mm3 (4.5-10.0)
[2023-08-11] MEDS: POLYSACCHARIDE IRON COMPLEX 150 MG CAPSULE PO ×2 (07:07→17:14)
[2023-08-11] MEDS: DOCUSATE SODIUM 100 MG CAPSULE PO ×2 (07:07→17:14)
[2023-08-11] MEDS: HYDROcodone/acetaminophen (*CRX) 5-325 MG TABLET 1 TAB PO ×3 (07:07→18:55)
[2023-08-11] MEDS: MULTIVIT/MIN/PREN/FOL AC/IRON TABLET 1 TAB PO (07:08)
[2023-08-11 07:30] VITALS: BP 89/51; PULSE 77; RESP 16; TEMP 36.6; O2SAT 98
--- NOTE | 2023-08-11 08:17 | WPDANLDPN2 ---
Anes-Prog Note L&D Date/Time: 08/11/23 08:17 Comfortable throughout: section Neuraxial method: spinal Epidural/Spinal procedure site: clean & non-tender Neuro status: Neuro function grossly intact. Cardiovascular status: normal Respiratory status: normal Airway patency: baseline Mental status: baseline Post-Op hydration status: normal Vital Signs: Last Vital Signs Temp 37.0 C 08/11/23 04:50 Pulse 65 08/11/23 04:50 Resp 18 08/11/23 04:50 BP 100/62 08/11/23 04:50 Pulse Ox 100 08/11/23 04:50 O2 Del Method Room Air 08/11/23 07:08 Pain score (VAS): 0 I/O: Intake & Output 08/10/23 08/11/23 08/11/23 23:59 07:59 15:59 Intake Total 2100 500 Output Total 1200 1100 Balance 900 -600 Post-procedural complaints: none Patient feedback: Patient satisfied with anesthetic care.
--- NOTE | 2023-08-11 08:17 | WPDANLDNPN2 ---
Anes-Prog Note L&D-Neuraxial Date/Time: 08/11/23 08:17 Neuraxial medications: intrathecal PF morphine Opiod-related complaints: none Patient feedback: Patient satisfied with post-operative pain management.
--- NOTE | 2023-08-11 08:33 | PM.OBPNVD ---
OB - PN: Subj Subjective Date/time seen: 08/11/23 08:33 Patient comments: no complaints and pain well controlled baby status: doing well OB - PN: Obj Data Labs 08/11/23 04:51 Labs: Laboratory Results - last 24 hr 08/11/23 04:51 WBC 8.7 RBC 3.27 L Hgb 9.4 L Hct 29.6 L MCV 90.5 MCH 28.7 MCHC 31.8 L RDW 14.1 Plt Count 223 MPV 10.2 Immature Gran % (Auto) 0.7 H Neut % (Auto) 75.9 H Lymph % (Auto) 16.2 L Wallace % (Auto) 6.6 Eos % (Auto) 0.5 Baso % (Auto) 0.1 L Lymph # (Auto) 1.42 Wallace # (Auto) 0.6 Eos # (Auto) 0.0 Baso # (Auto) 0.0 Abs Immat Gran (auto) 0.06 H Absolute Neuts (auto) 6.6 Absolute Nucleated RBC 0.0 Nucleated RBC % 0.0 OB - PN A/P Plan day: 1 Plan: routine care Time Spent With Patient Time: Total time spent is greater than 50% in coordination of care (as documented) at patient's floor/unit and/or counseling patient: Exam Narrative: inc c/d/i : Bimanual exam- vagina & uterus: other (Uterus firm, nt @U)
--- NOTE | 2023-08-11 16:30 | PC.NURSE ---
Addendum entered by Zoey Guerrero RN 08/12/23 14:31: 08/11/2023 1620 After reported to the Primary RN, she confirmed that she would initiate pumping and recheck blood sugar at 1700. Original Note: [id number] Consulted with patient to assess needs related to since infant has not had a effective latch since 0600. Mother states she did not call out because she wanted staff to think she was doing on her own. Mother was strongly encouraged to call for assistance. Mother works well with her with encouragement. Reviewed working with infant, supporting breast and how to protect the nipples with an optimal deep latch, good positioning, and good hand washing. Encouraged understanding the benefits of skin to skin, responding to feeding cues, frequencies of feeding 8-12 times in 24 hours (approximately 2-3 hours), duration of feedings, milk production, intake/output feeding sheet and signs of adequate intake encouraging swallowing at the breast. Reviewed positioning and alignment, supporting breast, off-centered (asymmetrical latch) and leading with the chin with big, open, wide gape. Infant latched optimally to the right breast in football position while RN went to order gel due to the blood sugar resulting 48mgdl. Education given to mother of how to visualize suck/swallow ratios and listen for drinking at the breast. was able to maintain latch without discomfort to mother at times for a few sucks, then breastfed for 5 minutes, then stopped. 1.5ml of gel was administered to the infant. Infant was looking for the breast after the gel. An attempt was given to infant to latch to the left breast. doesn't latch effectively. 15mls of Enfamil was paced bottle fed to the infant. After the formula was given was attempted again at the left breast. Mother was encouraged to pump for stimulation, practice [id number] offering the breast frequently and to call for assistance. We reviewed hand expression and scant amounts of colostrum was expressed. Nipple care reviewed with optimal latch, good positioning and using clean hands when feeding her and touching her breast. Mother was encouraged with infants big, open wide gape with tongue down despite the tight lower frenulum. Resources used to facilitate learning were used from the tool, mom and baby guide. Mother voiced understanding of the education shared, to call for assistance if the does not latch or if there is discomfort with . Reported to the primary RN who is going to initiate pumping.
[2023-08-11 18:55] VITALS: BP 106/54; PULSE 87; RESP 18; TEMP 36.8
[2023-08-12] MEDS: IBUPROFEN 600 MG TABLET PO ×2 (05:00→17:40)
[2023-08-12] MEDS: HYDROcodone/acetaminophen (*CRX) 10-325 MG TABLET 1 TAB PO (05:00)
[2023-08-12 07:53] VITALS: BP 99/52; PULSE 69; RESP 16; TEMP 35.8; O2SAT 98
--- NOTE | 2023-08-12 08:14 | PM.OBPNVD ---
OB - PN: Subj Subjective Date/time seen: 08/12/23 08:14 Patient comments: no complaints and pain well controlled (much better today) OB - PN: Obj Data Labs 08/11/23 04:51 OB - PN A/P Plan day: 2 Plan: routine care Time Spent With Patient Time: Total time spent is greater than 50% in coordination of care (as documented) at patient's floor/unit and/or counseling patient: Exam Narrative: inc c/d/i : Bimanual exam- vagina & uterus: other (Uterus firm, nt @U)
--- NOTE | 2023-08-12 10:09 | PC.NURSE ---
On 08/12/23, the student, Miriam Herrera, provided care and completed [facility] documentation on this patient. I have reviewed the student's documentation and agree with the findings.
[2023-08-12] MEDS: MULTIVIT/MIN/PREN/FOL AC/IRON TABLET 1 TAB PO (10:19)
[2023-08-12] MEDS: DOCUSATE SODIUM 100 MG CAPSULE PO ×2 (10:19→17:40)
[2023-08-12] MEDS: HYDROcodone/acetaminophen (*CRX) 5-325 MG TABLET 1 TAB PO ×2 (10:20→17:40)
[2023-08-12] MEDS: POLYSACCHARIDE IRON COMPLEX 150 MG CAPSULE PO ×2 (10:20→17:39)
--- NOTE | 2023-08-12 14:35 | PC.NURSE ---
[id number] Purposefully rounded to assess needs. Mother is in the shower. Father is holding . Inquired and discussed with dad how feedings were going. Father of baby states mother attempts to breastfeed, pumps, gives infant supplementation because she isn't pumping anything out yet. Father of baby requests more formula. Father encouraged to have mother call for assistance with latching. Reported to Primary RN that father of baby requested formula.
[2023-08-12 21:15] VITALS: BP 83/45; PULSE 86; RESP 16; TEMP 36.2
--- NOTE | 2023-08-12 21:15 | PC.NURSE ---
Patient instructed to view the discharge video Mother & Baby Care, The First Two Weeks online. Patient was given the opportunity and encouraged to ask questions. Patient verbalized understanding of information shared and has been given the mother/baby guide for home reference.
[2023-08-13] MEDS: TETANUS,DIPHTHERIA,AC PERTUSSIS ADULT (0.5 ML) BOOSTRIX IM (00:02)
[2023-08-13] MEDS: IBUPROFEN 600 MG TABLET PO ×2 (00:02→08:01)
[2023-08-13] MEDS: HYDROcodone/acetaminophen (*CRX) 5-325 MG TABLET 1 TAB PO ×2 (00:03→04:56)
[2023-08-13] MEDS: MULTIVIT/MIN/PREN/FOL AC/IRON TABLET 1 TAB PO (08:01)
[2023-08-13] MEDS: POLYSACCHARIDE IRON COMPLEX 150 MG CAPSULE PO (08:01)
[2023-08-13] MEDS: DOCUSATE SODIUM 100 MG CAPSULE PO (08:01)
--- NOTE | 2023-08-13 08:26 | PM.OBPNVD ---
OB - PN: Subj Subjective Date/time seen: 08/13/23 08:26 Patient comments: no complaints and pain well controlled baby status: doing well OB - PN: Obj Data Labs 08/11/23 04:51 OB - PN A/P Plan day: 3 Plan: routine care, discharge home and other (plans Phexxi for bc) Time Spent With Patient Time: Total time spent is greater than 50% in coordination of care (as documented) at patient's floor/unit and/or counseling patient: Exam Narrative: inc c/d/i : Bimanual exam- vagina & uterus: other (Uterus firm, nt @U)
[2023-08-13 08:30] VITALS: BP 89/50; PULSE 68; RESP 16; TEMP 36.6; O2SAT 98
[2023-08-13] MEDS: MEASLES,MUMPS,RUBELLA VACCINE 0.5 ML VIAL SUB-Q (12:39)
--- NOTE | 2023-08-13 13:28 | PC.NURSE ---
[id number] Purposefully rounded to assess the pain mother is having with pumping. Mother is eating breakfast and voiced understanding to call when she is ready for an evaluation. [id number] Patient was assessed for correct placement, flange size (changed to 30mm), to pump for comfort and nipple stretching/stimulation for adequate milk production every 3 hours (8 times in 24 hours) 1-2 times at night. Reviewed working with infant, supporting breast and how to protect the nipples with an optimal deep latch, good positioning, and good hand washing. Encouraged understanding the benefits of skin to skin, responding to feeding cues, frequencies of feeding 8-12 times in 24 hours (approximately 2-3 hours), duration of feedings, milk production, intake/output feeding sheet and signs of adequate intake encouraging swallowing at the breast. Reviewed positioning and alignment, supporting breast, off-centered (asymmetrical latch) and leading with the chin with big, open, wide gape. Infant latched to the left breast in football position, mother denies pain but infant either doesn't maintain after a few sucks, pulls back onto nipple or misshapes the nipple. Nipple care reviewed with optimal latch, good positioning and using clean hands when feeding her and touching her breast. Mother demonstrates the skill set to breastfeed, however, needs to grow to be able to optimally latch to mother. Infant demonstrates good effort at times and one latch was optimal for 3sucks and 1 swallow, then pulls back to shallow. Resources used to facilitate learning were used from the visual handout, tool, feeding sheet, mom and baby guide. Reviewed the insurance pump with parents and clarified not to use Symphony kit with the Medela Pump n Style. Parents voiced understanding of the education shared, to call for assistance if the does not latch or if there is discomfort with . Reported to the Primary RN.
[2023-08-14 14:12] VITALS: BP 94/61; PULSE 72; RESP 18; TEMP 36.9; O2SAT 100
--- NOTE | 2023-08-14 14:39 | PC.NURSE ---
[id number]- Spoke wiht Dr. Caldwell regarding patient affect while here. Patient and SO state that she is feeling depressed and not herself. Patient does have a follow up appointment on the for an incision check, will call and make this an appointment with a provider so they can check on her.
== END 2023-08-13 13:05 | disposition home or self-care (01) | DRG 787 ==
LOC: ANHLDR 08:26 → ANHOB2 10:59
PROVIDERS: Admitting Provider Obstetrics & Gynecology Gynecology; PCP Advanced Practice Midwife; Visit Provider Obstetrics & Gynecology Gynecology
PROC: 10D00Z1 Extraction of Products of Conception, Low, Open Approach (ICD-10-PCS; CPT 59514; principal; 2023-08-10 07:30)
DX: O32.1XX0 Maternal care for breech presentation, not applicable or unspecified (principal); O41.03X0 Oligohydramnios, third trimester, not applicable or unspecified; Z37.0 Single live birth; Z3A.39 39 weeks gestation of pregnancy
CPT/HCPCS: 36415; 85025; 88307; 90710; 90715; A9270; J0690; J1100; J1200; J2210; J2274; J2405; J2590; J7120

== ENCOUNTER 2023-12-09 09:48 | Outpatient (CLI) | payer OTHER, SELFPAY ==
--- NOTE | ~2023-12-09 | US_ITS ---
Pelvic ultrasound. Clinical History: Right ovarian cyst, IUD Technique: Realtime transabdominal scanning of the pelvis was performed. Color flow Doppler and Doppl er spectral analysis were performed. Findings: The uterus is anteverted, and measures 6.8 x 3.4 x 5.0 cm. IUD in satisfactory position. Th e endometrial stripe is normal in thickness. No focal mass is identified. The right ovary measures 2.7 x 1.9 x 3.0 cm. No significant right ovarian or adnexal mass is seen. The left ovary measures 1.6 x 1.5 x 1.6 cm. No significant left ovarian or adnexal mass is seen. Vascular flow present in both ovaries on Doppler spectral interrogation. There is no evidence of free fluid in the cul de sac. Impression: IUD in satisfactory position. Reviewed, dictated and finalized at [facility]. CAL DEVICE ASSEMBLER Impression: IUD in satisfactory position.
== END 2023-12-09 09:49 ==
PROVIDERS: PCP Obstetrics & Gynecology Gynecology; Visit Provider Obstetrics & Gynecology Gynecology
DX: Z97.5 Presence of (intrauterine) contraceptive device (principal); N83.201 Unspecified ovarian cyst, right side
CPT/HCPCS: 76856

== ENCOUNTER 2025-06-28 12:57 | Outpatient (CLI) | payer OTHER, SELFPAY ==
--- NOTE | ~2025-06-28 | US_ITS ---
EXAMINATION: US OB <= 14 weeks fetus DATE: 06/28/2025 13:18 INDICATION: Uncertain gestational dates TECHNIQUE: Real-time transabdominal and transvaginal obstetric ultrasound. FINDINGS: No prior studies for comparison. The uterus measures 14 x 8.6 x 9.9 cm. There is an intrauterine gestational sac, with pole identified. The crown rump length measures 7.6 cm, which correlates with a estimated gestational age of 13 weeks 5 days. heart tones are identified measuring 144 BPM. Ovaries are not visualized. IMPRESSION: 1. SL IUP with an EGA of 13 weeks, 5 days (EDC by current ultrasound of 12/29/2025). Reviewed, dictated and finalized at location O. IMPRESSION: 1. SL IUP with an EGA of 13 weeks, 5 days (EDC by current ultrasound of 12/30/19 26).
== END 2025-06-28 12:58 | disposition home or self-care (01) ==
LOC: MICIMG 12:58
PROVIDERS: PCP Obstetrics & Gynecology Gynecology
DX: Z36.87 Encounter for antenatal screening for uncertain dates (principal); Z3A.13 13 weeks gestation of pregnancy
CPT/HCPCS: 76801

== ENCOUNTER 2025-07-31 09:54 | Outpatient (CLI) | payer OTHER, SELFPAY ==
--- NOTE | ~2025-07-31 | US_ITS ---
PROCEDURE(S): Ultrasound OB, maternal for anatomy COMPARISON(S): June 28 TECHNIQUE: Grayscale scanning was performed. Color and spectral Doppler were also utilized FINDINGS There is a single live intrauterine gestation. Estimated Gestational Age, (according to the first ultrasound available for this gestation): 18 weeks, 4 days. Location: Intrauterine BPD: 4.5 cm HC: 15.8 cm AC: 13.6 cm FL: 2.8 cm FHR: 133/minute, which is within normal limits. BRIAN, based on (the earliest available ultrasound): December 29, 2025 EFW: 255 g FLORIDALMA: Appears to be within normal limits. Intracranial Contents: appear normal Abdominal Wall: appears normal Abdominal/Pelvic Organs: Within normal limits. Cord Insertion: Appears normal for gestational age. Spine: Appears to be within normal limits. Limbs/Digits: Appear to be within normal limits. Placenta: Appears normal. Umbilical Cord/Vessels: The umbilical cord within normal limits. There is a 3- vessel cord. Cervical Length: 3 cm. Other findings: None. IMPRESSION: Single live intrauterine gestation. There has been interval appropriate growth. No significant abnormality is seen. Reviewed, dictated and finalized at location A. IMPRESSION: Single live intrauterine gestation. There has been interval appropr iate growth. No significant abnormality is seen.
== END 2025-07-31 09:55 | disposition home or self-care (01) ==
LOC: MICIMG 09:55
PROVIDERS: PCP Obstetrics & Gynecology Gynecology; Visit Provider Obstetrics & Gynecology Gynecology
DX: Z36.9 Encounter for antenatal screening, unspecified (principal); Z3A.00 Weeks of gestation of pregnancy not specified
CPT/HCPCS: 76805

== ENCOUNTER 2025-08-04 12:15 | Emergency (ER) | payer OTHER, SELFPAY ==
--- OUTSIDE RECORDS SUMMARY | 2025-08-04 12:18 | XMS_ITS | Clinical Summary ---
Author Organization [facility] Address [facility] [place] [address] Care Team Providers Care Set Up Mechanic Stamping Machines Name Role Phone Matt Cowart MD Primary Care Provider [phone] Allergies Active Allergy Reactions Criticality Noted Date Comments Chicken Allergy Unknown 07/08/2024 Per md order Soybean-Containing Drug Products Unknown 01/2024 Per md orders Medications Multiple Vitamin (MULTIVITAMIN ADULT OR) Take 1 tablet by mouth daily. Active oxyCODONE immediate release (ROXICODONE) 5 MG immediate release tabletIndication s:Acute Pain < 3 Day Supply Take 1 tablet (5 mg total) by mouth every 4 (four) hours as needed. Indications : Acute Pain < 3 Day Supply 15 tablet 08/17/2024 Active ibuprofen (MOTRIN) 800 MG tablet Take 1 tablet (800 mg total) by mouth every 8 (eight) hours as needed. 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 Sjogrens syndrome 05/21/2020 Parotid mass 11/21/2019 Left hip pain 02/08/2019 Immunizations Immunization Administration Dates Next Due Dtap 02/18/2006, 4,05/27/2003,01/03,2002,2002 Dtap (Generic) 05/30/2003,01/19/2003 Hepatitis A 08/22/2004,02/20/2004 Hepatitis B 2002,2002,2002 Hib (Generic) 05/30/2003, 3,2002,04/05 Influenza Adult (Generic) 11/22/2019,,08/12/2017,03/06/2017 MENINGOCOCCAL A C Y&W-135 oligosaccharide (MENVEO) 11/02/2018,01/11/2014 MMR 02/18/2006,02/22/2003 Pneumococcal Vaccine 05/30/2003,01/19/2003 Polio IPV (Ipol) 02/18/2006, 3,2002,04/05 Tdap (Adacel) 03/10/2022 Tdap (Generic) 06/28/2012 Varicella Vaccine 03/17/2007,02/22/2003 Family History * Patient is adopted Medical History Relation Comments Diabetes Mother Relation Status Comments Father Alive Mother Alive Social History Tobacco Use Types Packs/Day Years Used Date Smoking Tobacco: Never Smokeless Tobacco: Never Tobacco Cessation:Counseling Given: No Alcohol Use Standard Drinks/Week Comments Not Currently 0 (1 standard drink = 0.6 oz pur e alcohol) AUDIT-C Answer Date Recorded Frequency of Alcohol Consumption Never 03/26/2019 Average Number of Drinks Not on file 019 Frequency of Binge Drinking Not on file 03/06 PHQ-2 Answer Date Recorded PHQ-2 Score - If the patient scores above 3, please move on to questions 3-9 0 04/24/2021 Comments No Sex and Gender Information Value Date Recorded Sex Assigned at Female 10/20/2024 3:38 PM WEASAND TRIMMER Legal Sex Female 12:20 PM CDT Gender Identity Not on file Sexual Orientation Not on file Last Filed Vital Signs Vital Sign Reading Time Taken Comments Blood Pressure 114/66 11/04/2024 2:25 PM WEASAND TRIMMER Pulse 72 11/04/2024 2:12 PM WEASAND TRIMMER Temperature 36.6 C (97.9 F) 11/04/2024 1:58 PM WEASAND TRIMMER Respiratory Rate 16 11/04/2024 2:25 PM WEASAND TRIMMER Oxygen Saturation 99% 11/04/2024 2:25 PM WEASAND TRIMMER Inhaled Oxygen Concentration - - Weight 77.1 kg (170 lb) 11/02/2024 11:59 AM WEASAND TRIMMER Height 152.4 cm (5') 11/02/2024 11:59 AM WEASAND TRIMMER Body Mass Index 33.2 11/02/2024 11:59 AM WEASAND TRIMMER Plan of Treatment Health Maintenance Due Date Last Done Comments Cervical Cancer Screening Pap Smear (Age 21 to 29) Every 3 Years 2002 Cervical Cancer Screening 2002 Annual Physical 2005 HPV Vaccines (1 - 3-dose series) 2017 Meningococcal B Vaccine (1 of 2 - Standard) 2018 Hepatitis C 02/17/2020 PHQ-2 (Physician [place]) 10/05/2024 COVID-19 Vaccine ( season) 2025 Influenza Adult (#1) 2025 11/22/2019, 11/02/2018, 08/12/2017, Additional history exists DTaP, Tdap and Td Vaccines (8 - Td or Tdap) 03/10/2032 03/10/2022, 06/28/2012, 02/18/2006, Additional history exists Hepatitis B Vaccines Completed 2002, 2002, 2002 Pneumococcal Vaccine: Pediatrics (0 to 5 Years) and At-Risk Patients (6 to 49 Years) Aged Out 05/30/2003, 01/19/2003 No longer eligibl e based on patient's age to complete this topic Hepatitis A Vaccines Completed 08/22/2004, 02/20/20 04 Meningococcal Vaccine Completed 11/02/2018, 014 RSV Immunizations Under 20 Months Aged Out No longer eligible based on patient's age to complete this topic Insurance [employer] [facility] Care Teams Set Up Mechanic Stamping Machines Relationship Specialty Start Date End Date Matt Cowart MD [address] [place] [address] PCP - General FAMILY PRACTICE 07/08/24
--- OUTSIDE RECORDS SUMMARY | 2025-08-04 12:18 | XMS_ITS ---
Author Organization [facility] (ClinicalSummary Clone) Address Unknown Care Team Providers Care Hot Die Press Operator Name Role Phone Unavailable Primary Care Physician Unavailab le Results * [UNITY] ANEUPLOIDY NIPT Performed by: Therapeutic Proteins Component Value Range Date Fraction 8.5% 07/11/2025 03 :33 am UTC Sex Chromosome Aneuploidy NOT DETECTED 03:33 am UTC Monosomy X LOW RISK <1 in 10,000 2024 03:33 am UTC Trisomy 13 LOW RISK <1 in 10,000 2024 03:33 am UTC Trisomy 18 LOW RISK <1 in 10,000 2024 03:33 am UTC Trisomy 21 LOW RISK <1 in 10,000 2024 03:33 am UTC Sex FEMALE 07/11/2025 03:3 3 am UTC Gestation SPARKS 07/11/20 03:33 am UT For detailed report, see PDF See PDF 07/11/2025 03:33 am UTC 07/11/2025 03:3 3 am UT Social History Observation Value Start Date End Date
--- OUTSIDE RECORDS SUMMARY | 2025-08-04 12:18 | XMS_ITS | Encounter Summary ---
Author Organization [facility] Healthcare Address [address] [place] [address] Care Team Providers Care Central Office Inspector Name Role Phone Emelia Michael Unavailable [phone] Leigh Gonzales MD Primary Care Prov ider Pj Aguilar MD Unavailable [phone] Francisco Kelly MD Primary Care Provider + Bharati Conley NP Primary Care Provider [phone] Encounter Details Date Type Department Care Team (Late st Contact Info) Description 01/13/2020 Telephone [facility] [place] [address] Corrina Christianson, Social History Tobacco Use Types Packs/Day Years Used Date Smoking Tobacco: Never Smokeless Tobacco: Never Alcohol Use Standard Drinks/Week Comments Never 0 (1 standard drink = 0.6 oz pur e alcohol) AUDIT-C Answer Date Recorded Frequency of Alcohol Consumption Never 02/09/2019 Average Number of Drinks Not on file 019 Frequency of Binge Drinking Not on file 05/2019 Comments Unknown Sex and Gender Information Value Date Recorded Sex Assigned at Not on file Legal Sex Female 11:29 AM REGIONAL MARKETING MANAGER Gender Identity Female 08/12/2020 10:46 PM REGIONAL MARKETING MANAGER Sexual Orientation Straight 08/12/2020 10 :46 PM REGIONAL MARKETING MANAGER COVID-19 Exposure Response Date Recorded In the last month, have you been in contact with someone who was confirmed or suspected to have Coronavirus / COVID-19? No / Unsure 01/02/2020 2:55 PM CDT documented as of this encounter Plan of Treatment Not on file documented as of this encounter Visit Diagnoses Not on filedocumented in this encounter Care Teams Central Office Inspector Relationship Specialty Start Date End Date Leigh Gonzales MD [address] [place] [id number] PCP - General 01/13/20 04/23/21 Francisco Kelly MD [address] [facility] [place] [address] PCP - General Family Medicine 04/24/21 02/02/22 Bharati Conley NP [address] [facility] [place], [place] [id number] PCP - General Able Bodied Watchman 02/03/22 Emelia Michael [address] [place] [id number] 11/11/18 Pj Aguilar MD 1 [facility] [address] [place] [address] Consulting Physician Pediatric Hematology and Oncology 11/23/20 documented as of this encounter
--- OUTSIDE RECORDS SUMMARY | 2025-08-04 12:18 | XMS_ITS ---
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 Past Treatment and Therapy Plans No past plan information found. Lifetime Dose Tracking * Chemical Lifetime Dose Automatic Entry Manual Entr y DLP 328 mGycm 328 mGycm 0 mGycm
--- OUTSIDE RECORDS SUMMARY | 2025-08-04 12:18 | XMS_ITS | Clinical Summary ---
Author Organization [facility] Building Address [address] [place] [address] Care Team Providers Care Senior Escrow Officer Name Role Phone Emelia Michael Unavailable [phone] Pj Aguilar MD Unavailable [phone] Bharati Conley NP Primary Care Provider [phone] Allergies No known active allergies Medications ondansetron ODT (ZOFRAN-ODT) 4 mg disintegrating tablet Take 1 tablet (4 mg total) by mouth every 8 (eight) hours as needed for nausea or vomiting 20 tablet 2 Active vit 82-jsjc-yytau-dha 27mg iron- 800 mcg-250 mg capsule Take 1 tablet by mouth daily Active vitamin D3-vitamin K2 25 mcg (1,000 unit)-90 mcg tablet,disintegrati ng Take 1 tablet by mouth once a week Active cetirizine (ZyrTEC) 10 mg tablet Take 1 tablet (10 mg total) by mouth daily 9 Active ergocalciferol (VITAMIN D) 50,000 unit capsule Take 1 capsule (50,000 Units total) by mouth 3 Active Active Problems Problem Noted Date Diagnosed Date Sjogrens syndrome 05/21/2020 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 11/21/2019 Left hip pain 02/08/2019 Surgical History Surgery Date Site/Laterality Comments LYMPH NODE DISSECTION face Medical History Medical History Date Comments Migraine Family History Medical History Relation Name Comments Diabetes Other Relation Name Status Comments Other Social History Tobacco Use Types Packs/Day Years Used Date Smoking Tobacco: Never Smokeless Tobacco: Never Alcohol Use Standard Drinks/Week Comments Never 0 (1 standard drink = 0.6 oz pur e alcohol) AUDIT-C Answer Date Recorded Frequency of Alcohol Consumption Never 02/09/2019 Average Number of Drinks Not on file 019 Frequency of Binge Drinking Not on file 05/2019 Personal Safety Answer Date Recorded Getting School Help Needed Not on file 06/11 Comments No Sex and Gender Information Value Date Recorded Sex Assigned at Not on file Legal Sex Female 11:29 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 Gender Identity Female 08/12/2020 10:46 PM DISCHARGE DOOR OPERATOR Sexual Orientation Straight 08/12/2020 10 :46 PM DISCHARGE DOOR OPERATOR Obstetrics History Para Term AB IAB SAB Ectopic Multiple Livin g Live Births 1 Date Outcome GA Total Labor Labor/2nd/3rd Weight Sex Type Anes PTL Julissa A1 A5 Name Clin Last Filed Vital Signs Vital Sign Reading Time Taken Comments Blood Pressure 103/59 05/20/2023 8:23 PM CDT Pulse 76 05/20/2023 8:23 PM CDT Temperature 37 C (98.6 F) 05/20/2023 8:23 PM CDT Respiratory Rate 18 05/20/2023 8:23 PM CDT Oxygen Saturation 98% 05/20/2023 5:35 PM CDT Inhaled Oxygen Concentration - - Weight 76.2 kg (168 lb) 05/20/2023 4:17 PM CDT Height 149.9 cm (4' 11) 05/20/2023 4:17 PM CDT Body Mass Index 33.93 05/20/2023 4:17 PM CDT Plan of Treatment Health Maintenance Due Date Last Done Comments Cervical Cancer Screening 2002 Depression Screening 2002 Hepatitis C Screening 2002 HPV Vaccines (1 - 3-dose series) 2017 Meningococcal B Vaccine (1 o f 2 - Standard) 2018 Regular Well Visit/Exam 18-64 02/17/2020 Pneumococcal vaccine <65 (1 of 2 - PCV) 2021 05/30/2003, 01/19/2003 Zoster Vaccine (1 of 2) 2021 Influenza Vaccine (#1) 2025 0, 11/02/2018, 08/12/2017, Additional history exists DTaP/Tdap/Td Vaccine (8 - Td or Tdap) 03/10/2032 03/10/2022, 06/28/2012, 02/18/2006, Additional history exists Hepatitis B Screening Completed 2002 , 2002, 2002 Varicella Vaccines Completed 03/17/2007, 02/22/2003 Insurance [place] [employer] [facility] [place] [employer] [facility] OPEN ACCESS THIRD CONSTITUTION PARTY LIABILITY - GENERIC [facility] [id number] [employer] [facility] THIRD CONSTITUTION PARTY LIABILITY - GENERIC Care Teams Senior Escrow Officer Relationship Specialty Start Date End Date Bharati Conley NP [address] [place] [address] - [address] Judge 02/03/22 Emelia Michael [address] [place] [phone] 11/11/18 Pj Aguilar MD 1 [facility] [address] [place] [address] Consulting Physician Pediatric Hematology and Oncology 11/23/20
--- OUTSIDE RECORDS SUMMARY | 2025-08-04 12:18 | XMS_ITS | Encounter Summary ---
Author Organization [facility] Healthcare Address [address] [place] [address] Care Team Providers Care Maid Housekeeper Name Role Phone AlecEmelia Unavailable Leigh Gonzales MD Primary Care Prov ider Pj Aguilar MD Unavailable [phone] Francisco Kelly MD Primary Care Provider + Bharati Conley NP Primary Care Provider [phone] Encounter Details Date Type Department Care Team (Late st Contact Info) Description 02/14/2020 Telephone [facility] [place] [address] Corrina Christianson RT Social History Tobacco Use Types Packs/Day Years [...] on file Legal Sex Female 11:29 AM HOUSEFELLOW Gender Identity Female 08/12/2020 10:46 PM HOUSEFELLOW Sexual Orientation Straight 08/12/2020 10 :46 PM HOUSEFELLOW documented as of this encounter Plan of Treatment Not on file documented as of this encounter Visit Diagnoses Not on filedocumented in this encounter Care Teams Maid Housekeeper Relationship Specialty Start Date End Date Leigh Gonzales MD [address] [place] [phone] PCP - General 01/13/20 04/23/21 Francisco Kelly MD [address] [place], [place] [id number] PCP - General Family Medicine 04/24/21 02/02/22 Bharati Conley NP [address] [place], [place] [phone] PCP - General Security Systems Administrator 02/03/22 Emelia Michael [address] [place] [phone] 11/11/18 Pj Aguilar MD 1 [facility] [address] [place] [address] Consulting Physician Pediatric Hematology and Oncology 11/23/20 documented as of this encounter
--- OUTSIDE RECORDS SUMMARY | 2025-08-04 12:18 | XMS_ITS | Clinical Summary ---
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 Gender Identity Not on file Sexual Orientation Not on file Plan of Treatment Health Maintenance Due Date Last Done Comments Hepatitis C Virus (HCV) Screening 2002 Human Papillomavirus (HPV) Immunization (1 - 3-dose series) 2017 Meningococcal B Immunization (1 of 2 - Standard) 2018 Influenza Immunization (#1) 06/05/202510/06, 08/12/2017, 12/11/2016 SARS-COV-2 Immunization ( - season) 2025 Respiratory Syncytial Virus (RSV) Immunization (Adult) (1 - 1-dose 75+ series) 2077 Hepatitis B Immunization Completed 003, 2002, 2002 Pneumococcal Immunization Combined Aged Out 05/30/2003, 01/19/2003 No longer eligibl e based on patient's age to complete this topic Hepatitis A Immunization Discontinued 08/22/2004, 02/02 Measles Mumps Rubella (MMR) Immunization Discontinued 02/18/2006, 02/22/2003 Polio (IPV) Immunization Discontinued 006, 01/19/2003, 2002, Additional history exists Varicella Immunization Discontinued 03/17/2007, 2002 DTaP/Tdap/Td Immunization Discontinued 2011, 02/18/2006, 12/15/2003, Additional history exists TdaP Immunization Completed 06/28/2012 Meningococcal Immunization (ACWY) Completed 11/02/2018, 01/11/2014 Rotavirus Immunization Aged Out No lo nger eligible based on patient's age to complete this topic
--- OUTSIDE RECORDS SUMMARY | 2025-08-04 12:18 | XMS_ITS ---
Author Organization [facility] Source Produ ction (ClinicalSummary Clone) Address Unknown Care Team Providers Care Equipment Operator/Laborer Name Role Phone Unavailable Primary Care Physician Unavailab le Results * [UNITY] CARRIER SCREEN Performed by: [employer] Component Value Range Date PMM2-Congenital Disorder of Glycosylation carrier screen NEGATIVE 07/05/2025 06:36 am [facility] Phenylalanine Hydroxylase Deficiency carrier screen NEGATIVE 07/05/2025 06: 36 am [facility] Abdullahi-Sachs Disease carrier screen NEGATIVE 07/05/2025 06:36 am [facility] Familial Dysautonomia reece r screen NEGATIVE 07/05/2025 06:36 am [facility] DMD-associated dystrophinopa onur carrier screen NEGATIVE 07/05/2025 06:36 am [facility] Yjurd-Xdylh-Mpvmq syndrome c arrier screen NEGATIVE 07/05/2025 06:36 am [facility] Awa Disease carrier screen NEGATIVE 07/05/2025 06:36 am [facility] Medium-Chain acyl-CoA Dehydr ogenase Deficiency carrier screen NEGATIVE 07/05/2025 06: 36 am [facility] Fragile X carrier screen NEGATIVE 41 / 30 repeats 07/05/2025 06:36 am [facility] Sickle Cell Disease/Beta-Thalassemia/Hemoglobin opathies carrier screen NEGATIVE 07/05/2025 06:36 am [facility] Alpha-Thalassemia carrier screen NEGATIVE 07/05/2025 06:36 am [facility] Cystic Fibrosis carrier screen NEGATIVE 07/05/2025 06:36 am [facility] Spinal Muscular Atrophy murillo ier screen NEGATIVE 2 SMN1 copies, SNP not present 07/05/2025 06:36 am [facility] For detailed report, see PDF See PDF 07/05/2025 06:36 am UTC 07/05/2025 06:3 6 am [facility] Social History Observation Value Start Date End Date
[2025-08-04 12:43] VITALS: BP 104/51; PULSE 78; RESP 16; TEMP 36.6; O2SAT 100
[2025-08-04 15:26] VITALS: BP 99/65; PULSE 74; RESP 19; O2SAT 99
--- NOTE | 2025-08-04 15:26 | ED.DIZZY ---
HPI - Dizziness General Chief Complaint: Dizziness Stated Complaint: OB Sent to ED, 18 Weeks Time Seen by Provider: 08/04/25 15:23 Source: patient and family Mode of arrival: ambulatory Limitations: no limitations History of Present Illness HPI Narrative: 25 years old white female came to the ED with her complaining of intermittent spells of dizziness, lightheadedness, tingling numbness of the hands and feet, poor concentration for the last 3 weeks. Patient also complaining of intermittent headache since the beginning of her , 18 weeks ago. History of depression not on any medications since 2021. Patient any fever chills, vomiting. Last time seen by her OBGYN July 14, 2025 she denies any vaginal bleeding or discharge or any abdominal pain Related Data Home Medications ?Medication ?Instructions ?Recorded ?Confirmed ?Last Taken ?Type cholecalciferol (vitamin D3) 1,250 1,250 mcg PO WEEKLY 07/16/23 08/10/23 08/02/23 08:00 History mcg (50,000 unit) tablet ferrous sulfate 325 mg (65 mg 325 mg PO DAILY 07/16/23 08/10/23 08/08/23 08:00 History iron) tablet prenat.vits,brittany,tiz-cxep-torhg tablet 07/16/23 08/09/23 08:00 History Allergies Allergy/AdvReac Type Severity Reaction Status Date / Time No Known Allergies Allergy Unknown Verified 08/10/23 06:16 Review of Systems Review of Systems: All systems reviewed & are unremarkable except as noted in HPI and below PMFSH Past Medical History Medical History Sjogren syndrome, unspecified Non-Hodgkin lymphoma h/o surg in 2017, in remission Surgical History Surgical History History of superficial parotidectomy left Family History Family History Mother Diabetes mellitus Social History Social History Smoking status: Never smoker Second hand tobacco smoke exposure: No Substance use: never Lack of Transportation: No Lack of Food: Never True Current Housing: I Have Housing Concerned About Future Housing: No Difficulty Paying Gas/Electric Bills: No Difficulty Paying for Meds: No Currently Unemployed: YES Education: High School Diploma/GED Difficulty w/ Childcare or Family Care: No Spiritual care concerns: No Exam Narrative: General appearance: Well-developed, well-nourished Skin: Normal color Head: Normocephalic, nontraumatic Eyes: Clear conjunctiva ENT: Oropharynx normal, ears normal, nose normal Neck: Supple, nontender Chest and respiratory: Airway patent, no respiratory distress, no accessory muscle use Heart: Regular rate/rhythm Abdomen: Soft, nontender, no organomegaly, quiet bowel sounds Vascular: Normal peripheral pulses, normal capillary refill. Musculoskeletal: Normal range of motion, nontender back Neurologic: Alert and oriented ?3, FOREST PATHOLOGY ASSOCIATE PROFESSOR is normal as tested, no gross motor deficit Course Vital Signs Vital signs: Vital Signs Temperature 36.6 C 08/04/25 12:43 Pulse Rate 78 08/04/25 12:43 Respiratory Rate 16 08/04/25 12:43 Blood Pressure 104/51 L 08/04/25 12:43 Pulse Oximetry 100 08/04/25 12:43 Oxygen Delivery Room Air 08/04/25 12:43 Temperature 36.6 C 08/04/25 12:43 Pulse Rate 76 08/04/25 17:43 Respiratory Rate 18 08/04/25 17:43 Blood Pressure 110/63 08/04/25 17:43 Pulse Oximetry 100 08/04/25 17:43 Oxygen Delivery Room Air 08/04/25 15:26 MDM - Dizziness MDM Narrative Medical decision making narrative: Patient presents with anxiety like symptoms Vital signs showing blood pressure 104/51 otherwise within normal limit Physical examination is unremarkable Differential diagnosis include anxiety like symptoms, electrolyte imbalance, dehydration, urinary tract infection Blood workup today includes CBC, CMP, TSH showed NO SIGNIFICANT ABNORMALITY Urinalysis showed EVIDENCE OF INFECTION DIAGNOSIS ANXIETY LIKE SYMPTOMS, URINARY TRACT INFECTION DISCHARGED ON AMOXICILLIN THE PT WAS DISCHARGED TO HOME.THE PT,S CONDITION UPON DISCHARGE WAS FAIR,EDUCATION WAS PROVIDED TO THE PT IN REFERENCE TO THE FINAL IMPRESSION,DISCHARGE STUDY RESULTS,TREATMENT,PROGNOSIS AND NEED FOR FOLLOW UP . Differential Diagnosis Differential diagnosis: Likely other Medical Records Attestation: I reviewed the patient's medical records. Lab Data Attestation: I reviewed the patient's lab results. 08/04/25 15:48 08/04/25 15:48 Labs: Lab Results 08/04/25 08/04/25 08/04/25 Range/Units 15:48 15:48 16:46 WBC 6.6 (4.5-10.0) K/mm3 RBC 3.82 L (4.2-5.4) M/mm3 Hgb 10.8 L (12.0-15.0) g/dL Hct 32.6 L (37.0-47.0) % MCV 85.3 (80-100) fl MCH 28.3 (26-34) pg MCHC 33.1 (32-36) g/dl RDW 13.3 (11.5-14.5) % Plt Count 234 (150-375) k/mm3 MPV 9.5 (7.4-10.4) fl Immature Gran % (Auto) 0.6 H (0-0.5) % Neut % (Auto) 64.9 (45.5-73.1) % Lymph % (Auto) 18.5 (18.3-44.2) % Karnes % (Auto) 6.1 (2.6-8.5) % Eos % (Auto) 9.6 H (0-4.4) % Baso % (Auto) 0.3 (0.2-1.2) % Lymph # (Auto) 1.22 (0.9-3.2) K/mm3 Karnes # (Auto) 0.4 (0.1-0.6) K/mm3 Eos # (Auto) 0.6 H (0-0.3) K/mm3 Baso # (Auto) 0.0 (0.0-0.1) K/mm3 Abs Immat Gran (auto) 0.04 H (0.00-0.031) K/mm3 Absolute Neuts (auto) 4.3 (1.3-6.7) K/mm3 Absolute Nucleated RBC 0.000 (0.0-0.012) K/mm3 Nucleated RBC % 0.0 (0.0-0.2) % Sodium 133 L (137-145) mmol/L Potassium 3.7 (3.4-5.0) mmol/L Chloride 106 (98-107) mmol/L Carbon Dioxide 21 L (22-30) mmol/L Anion Gap 6 (4-12) mmol/L BUN 9 (7-17) mg/dL Creatinine 0.41 L (0.7-1.0) mg/dL Estim Creat Clear Calc Not Reportable Estimated GFR > 60 (59 - ) Glucose 74 (65-110) mg/dL Calcium 8.6 (8.4-10.2) mg/dL Total Bilirubin 0.4 (0.2-1.3) mg/dL AST 31 (14-36) U/L ALT 16 (6-35) U/L Alkaline Phosphatase 77 (38-126) U/L Total Protein 8.1 (6.3-8.2) g/dL Albumin 3.7 (3.5-5.1) g/dL TSH 0.725 Cancelled (0.465-4.680) uIU/mL Urine Color Yellow (Yellow) Urine Appearance Turbid H (Clear) Urine pH 6.5 (5.0-9.0) Ur Specific [place] 1.016 (1.001-1.035) Urine Protein Negative (Negative) mg/dL Urine Glucose (UA) Negative (Negative) mg/dL Urine Ketones Trace H (Negative) mg/dL Ur Blood (Man) Negative (Negative) Urine Nitrate Negative (Negative) Urine Bilirubin Negative (Negative) Urine Urobilinogen 0.2 (<2.0) mg/dL Add Ur Microanalysis Reviewed Leukocyte Esterase Rfl 3+ H (Negative) BRIAN/UL Urine RBC 21-50 H (0-2) /hpf Urine WBC 0-5 (0-3) /hpf Ur Squamous Epith Cells Moderate (Few) /hpf Urine Bacteria 2+ H /hpf Urine Casts 0-2 Urine Opiates Screen Pending Urine Methadone Screen Pending Ur Barbiturates Screen Pending Ur Phencyclidine Scrn Pending Ur Amphetamine Screen Pending U Benzodiazepines Scrn Pending Urine Cocaine Screen Pending U Cannabinoids Screen Pending ECG Data EKG #1: Attestation: I personally reviewed and interpreted this ECG as follows: ECG completion date: 08/04/25 Prior ECG tracings: not available for review Interpretation: NORMAL SINUS RHYTHM AT 74 BEATS PER MINUTE, OTHERWISE NO NORMAL EKG Critical Care Time Critical Care Time Critical Care Time: No Discharge Plan Discharge Clinical Impression: Anxiety-like symptoms, Urinary tract infection Patient Disposition: Home Condition: Stable Instructions: Antibiotic Form, Anxiety (ED), Urinary Tract Infection in (ED) Additional Instructions: RETURN IF SYMPTOMS ARE WORSENING , CALL YOUR OBGYN FOR APPOINTMENT, TAKE TYLENOL NEEDED FOR ACHES AND PAIN, CONTINUE HOME MEDICATIONS. Patient Language: Thai Prescriptions: New amoxicillin 875 mg tablet 875 mg PO Q12H Qty: 20 0RF No Action ferrous sulfate 325 mg (65 mg iron) Tablet 325 mg PO DAILY prenat.vits,brittany,qgb-qfyt-reyis Tablet cholecalciferol (vitamin D3) 1,250 mcg (50,000 unit) Tablet 1,250 mcg PO WEEKLY hydrocodone-acetaminophen 5-325 mg tablet 1 tablet PO Q4H PRN (Reason: pain) Qty: 20 0RF Phexxi 1.8-1-0.4 % gel 1 appful vaginal PER PKG DIR Qty: 60 12RF Rx Instructions: insert 1 applicatorful vaginally within 1 hour before each act of vaginal intercourse Follow-up/Referrals: Becky Caldwell MD [Primary Care Provider, P[employer]LING [employer]UTION [employer]KER]
--- NOTE | 2025-08-04 15:27 | ECG_ITS ---
Test Date: 2025-08-04 16:46:39 Measurements Intervals [place] Rate: 74 P: -14 RI: 143 QRS: 21 QRSD: 91 T: 22 QT: 348 QTc: 387 Interpretive Statements SINUS RHYTHM INCOMPLETE RIGHT BUNDLE BRANCH BLOCK BORDERLINE ECG No previous ECG available for comparison Electronically Signed On 08-04-2025 20:04:50 CDT by Cirilo Butler D.O.
[2025-08-04 16:01] LABS: Hematocrit 32.6 % (37.0-47.0); Hemoglobin 10.8 g/dL (12.0-15.0); Immature Granulocyte Percent A 0.6 % (0-0.5); Lymphocytes Absolute Auto 1.22 K/mm3 (0.9-3.2); Mean Corpuscular HGB Conc 33.1 g/dl (32-36); Mean Corpuscular Hemoglobin 28.3 pg (26-34); Mean Corpuscular Volume 85.3 fl (80-100); Nucleated Red Blood Cells Absolute Auto 0.000 K/mm3 (0.0-0.012); Nucleated Red Blood Cells Perc 0.0 % (0.0-0.2); Platelet Count Result 234 k/mm3 (150-375); Red Blood Count 3.82 M/mm3 (4.2-5.4); White Blood Count 6.6 K/mm3 (4.5-10.0)
[2025-08-04 16:12] LABS: Alanine Aminotransferase 16 U/L (6-35); Albumin Level 3.7 g/dL (3.5-5.1); Alkaline Phosphatase 77 U/L (38-126); Anion Gap 6 mmol/L (4-12); Aspartate Amino Transferase 31 U/L (14-36); Bilirubin,Total 0.4 mg/dL (0.2-1.3); Blood Urea Nitrogen 9 mg/dL (7-17); Calcium 8.6 mg/dL (8.4-10.2); Carbon Dioxide 21 mmol/L (22-30); Chloride 106 mmol/L (98-107); Estimated Glomerular Filt Rate > 60; Glucose 74 mg/dL (65-110); Potassium 3.7 mmol/L (3.4-5.0); Sodium 133 mmol/L (137-145); Total Protein 8.1 g/dL (6.3-8.2)
[2025-08-04 16:43] LABS: Thyroid Stimulating Hormone 0.725 uIU/mL (0.465-4.680)
[2025-08-04 17:05] LABS: Add Urine Microscopic? YES; Appearance Urine Turbid (Clear); Glucose Urine UA Negative (Negative); Leukocyte Esterase Ur 3+ LEU/UL (Negative); Need Manual Microscopic Reviewed; Nitrate Urine Negative (Negative); Non Pathogenic Casts 0-2; Specific Grav Ur 1.016 (1.001-1.035)
[2025-08-04 17:43] VITALS: BP 110/63; PULSE 76; RESP 18; O2SAT 100
[2025-08-04 18:12] LABS: Cannabinoid Screen Urine Negative (Negative)
[2025-08-04 18:36] VITALS: BP 110/72; PULSE 78; RESP 17; O2SAT 100
== END 2025-08-04 18:40 | disposition home or self-care (01) ==
PROVIDERS: Emergency Provider Emergency Medicine; PCP Obstetrics & Gynecology Gynecology
DX: O23.42 Unspecified infection of urinary tract in pregnancy, second trimester (principal); N39.0 Urinary tract infection, site not specified; O99.342 Other mental disorders complicating pregnancy, second trimester; F41.9 Anxiety disorder, unspecified; O99.891 Other specified diseases and conditions complicating pregnancy; M35.00 Sjogren syndrome, unspecified; O9A.112 Malignant neoplasm complicating pregnancy, second trimester; C85.9A Non-Hodgkin lymphoma, unspecified, in remission; O99.412 Diseases of the circulatory system complicating pregnancy, second trimester; I45.10 Unspecified right bundle-branch block; Z3A.18 18 weeks gestation of pregnancy
CPT/HCPCS: 36415; 80053; 80307; 81001; 84443; 85025; 93005; 99283